=== PATIENT | male | born 1955 | race African-American/Black ===

== ENCOUNTER 2017-05-13 15:10 | Emergency (ER) | payer SELFPAY ==
[~2017-05-13] VITALS: Ht 167.6 cm; Wt 64.0 kg
[2017-05-13] MEDS ORDERED: IBUPROFEN 600MG TABLET PO ONE (15:45)
[2017-05-13] MEDS ORDERED: ACETAMINOPHEN WITH CODEINE 300/30MG TABLET PO ONE (18:00)
[2017-05-13 18:04] VITALS: BP 128/81
== END 2017-05-13 18:16 | disposition home or self-care (01) ==
LOC: ER 15:38
DX: S00.83XA Contusion of other part of head, initial encounter (principal); M54.2 Cervicalgia; R51 Headache; Y08.89XA Assault by other specified means, initial encounter; Y93.89 Activity, other specified; Y92.89 Other specified places as the place of occurrence of the external cause; Y99.8 Other external cause status
CPT/HCPCS: 99283